=== PATIENT | male | born 1985 ===

== ENCOUNTER 2021-01-11 20:13 | Emergency (ER) | payer SELFPAY ==
[~2021-01-11] VITALS: Ht 185.4 cm; Wt 104.5 kg
[2021-01-11 20:17] VITALS: BP 136/87
== END 2021-01-11 20:31 ==
LOC: ER 20:14
DX: S30.1XXA Contusion of abdominal wall, initial encounter (principal); S50.312A Abrasion of left elbow, initial encounter; F17.200 Nicotine dependence, unspecified, uncomplicated; F15.90 Other stimulant use, unspecified, uncomplicated; V19.9XXA Pedal cyclist (driver) (passenger) injured in unspecified traffic accident, initial encounter; Y93.89 Activity, other specified; Y92.89 Other specified places as the place of occurrence of the external cause; Y99.8 Other external cause status
CPT/HCPCS: 99283